=== PATIENT | female | born 1990 | race Caucasian/White ===

== ENCOUNTER 2022-03-26 14:03 | Emergency (ER) | payer BC ==
[~2022-03-26] VITALS: Ht 170.2 cm; Wt 55.0 kg
[2022-03-26] MEDS ORDERED: HALOPERIDOL LACTATE 5MG/ML VIAL IM ONE (15:00)
[2022-03-26] MEDS ORDERED: HALOPERIDOL 5MG TABLET PO ONE (15:00)
[2022-03-26 15:22] LABS: BASOPHILS % 0.3 % (0.0-2.0); HEMATOCRIT. 35.7 % (36.0-48.0); HEMOGLOBIN. 12.6 g/dL (12.0-16.0); LYMPHOCYTES % 7.4 % (20.0-50.0); MEAN CORPUSCULAR HEMOGLOBIN 32.9 pg (28.0-32.0); MEAN CORPUSCULAR VOLUME 93.1 fL (81.0-99.0); MEAN PLATELET VOLUME 8.9 fl (7.4-10.4); MONOCYTES % 4.2 % (2.0-8.0); NEUTROPHILS % 88.1 % (40.0-76.0); PLATELET 213 x1000/uL (130-400); RED BLOOD CELL COUNT 3.84 mill/uL (4.2-5.4); RED CELL DISTRIBUTION WIDTH 12.8 % (11.6-14.6)
[2022-03-26 15:32] LABS: CHLORIDE 106 mEq/L (98-107)
[2022-03-26 15:33] LABS: PROTHROMBIN TIME 11.2 sec (9.6-11.0)
[2022-03-26 15:57] LABS: HCG SCREEN NEGATIVE
[2022-03-26] MEDS ORDERED: ONDANSETRON HCL 4MG/2ML INJ IV NR (16:00)
[2022-03-26] MEDS ORDERED: SODIUM CHLORIDE 0.9% 1,000 ML IV ONE (16:45)
[2022-03-26] MEDS ORDERED: ONDA4TAB11 PO (18:54)
[2022-03-26] MEDS ORDERED: FAMO20TA8 MT (18:54)
[2022-03-26] MEDS ORDERED: FAMOTIDINE 20MG/2ML VIAL IV ONE (19:00)
[2022-03-26] MEDS ORDERED: METOCLOPRAMIDE HCL 10MG/2ML VIAL IV ONE (19:00)
[2022-03-26 21:45] VITALS: BP 114/69
== END 2022-03-26 22:10 | disposition home or self-care (01) ==
LOC: ER 14:03
DX: R11.2 Nausea with vomiting, unspecified (principal); K29.20 Alcoholic gastritis without bleeding; F10.20 Alcohol dependence, uncomplicated; Y90.9 Presence of alcohol in blood, level not specified
CPT/HCPCS: 36415; 80053; 83690; 84703; 85025; 85610; 96360; 99283; J1630; J2405; J7030